=== PATIENT | female | born 1935 | race Caucasian/White ===

== ENCOUNTER 2023-06-25 10:56 | Day surgery (SDC) | payer OTHER ==
[~2023-06-25] VITALS: Ht 157.5 cm; Wt 61.2 kg
[2023-06-25] MEDS ORDERED: fentaNYL CITRATE/PF 100 MCG/2 ML AMP ONE (12:05)
[2023-06-25] MEDS ORDERED: SIMETHICONE 40 MG/0.6 ML ML ONE (12:05)
[2023-06-25] MEDS ORDERED: MIDAZOLAM HCL 5 MG/5 ML VIAL ONE (12:06)
[2023-06-25 13:13] VITALS: O2SAT 98
[2023-06-25 16:50] VITALS: BP_SYST 132; PULSE 57; RESP 18
== END 2023-06-25 14:45 | disposition home or self-care (01) ==
LOC: SDS 10:56 → SMU 11:00 → SDS 14:45
PROVIDERS: ATTEND Surgery
DX: Z43.2 Encounter for attention to ileostomy (principal); K57.20 Diverticulitis of large intestine with perforation and abscess without bleeding; Z79.899 Other long term (current) drug therapy
CPT/HCPCS: 45330; 99152; G0378; J2250; J3010; G0104